=== PATIENT | male | born 1940 | race Caucasian/White ===

== ENCOUNTER 2017-01-19 14:32 | Emergency (ER) | payer MEDICARE ==
[~2017-01-19] VITALS: Ht 185.4 cm; Wt 115.7 kg
--- NOTE | ~2017-01-19 | EKG ---
[facility] [place], [place] ELECTROCARDIOGRAM REPORT NAME: GODWIN GOEMZ UNIT #: [id number] ROOM: DOCTOR: DAWN WILSON MD BIRTHDATE: [birth year] DOS: 01/19/2017 TIME: 1454 hours. Normal sinus rhythm at 98 beats per minute with a single PVC. Mild left axis deviation. Mild prolonged QRS interval. Poor R-wave progression is present with low voltage in precordial leads. An abnormal ECG. No previous tracing is available for comparison. DAWN WILSON MD CM:EKGRPT:ELECTROCARDIOGRAM REPORT 1705 19 DAWN WILSON MD
[~2017-01-19 14:32] MED LIST: COREG3.125 MG PO; LASIX20 MG PO; NAPROSYN500 MG PO; PERCOCET 325 MG1 TA2 PO; PERCOCET 325 MG1 TA6 PO; SIMVASTATIN20 MG PO; Zestril,Prinivi40 MG PO
[2017-01-19 14:54] LABS: HEMATOCRIT 51.7 % (42.0-52.0); HEMOGLOBIN 17.3 g/dl (14.0-18.0); MEAN CELL VOLUME 85.6 fl (80.0-94.0); MEAN CORPUSCULAR HGB 28.6 pg (27.0-31.0); MEAN CORPUSCULAR HGB CONC 33.5 g/dl (33.0-37.0); MEAN PLATELET VOLUME 9.7 fl (9.6-12.3); PLATELET COUNT AUTOMATED 365 10*3/uL (130-400); RED BLOOD COUNT 6.04 10*6/uL (4.50-5.90); RED CELL DISTRI WIDTH 14.1 % (0-14.5); WHITE BLOOD COUNT 23.6 10*3/uL (4.8-10.8)
[2017-01-19 15:11] LABS: ALBUMIN 4.4 gm/dl (3.1-4.5); ALKALINE PHOSPHATASE 87 U/L (45-117); BUN 22 mg/dl (7-24); CHLORIDE 101 mmol/L (98-107); CREATININE 1.32 mg/dL (0.70-1.30); LIPASE 188 U/L (73-393); POTASSIUM 4.1 mmol/L (3.5-5.1); SGOT/AST 31 IU/L (3-35); SGPT/ALT 31 U/L (12-78); SODIUM 135 mmol/L (136-145); TOTAL PROTEIN 8.8 gm/dL (6.4-8.2)
[2017-01-19 15:15] LABS: PLATELET SUFFICIENCY NORMAL (NORMAL); TOTAL CELLS COUNTED 100 #CELLS
[2017-01-19 15:16] LABS: TROPONIN I < 0.015 ng/ml (<0.045)
[2017-01-19 15:51] LABS: ABG BASE EXCESS -1.3 mmol/L (-2.0-2.0); ABG HCO3 22.2 mmol/l (22-26); ABG O2 SATURATION 96.7 % (95-97); ARTERIAL BLOOD GAS PCO2 34.3 mmHg (35-45); ARTERIAL BLOOD GAS PH 7.422 (7.35-7.45); ARTERIAL BLOOD GAS PO2 80.4 mmHg (80-90)
== END 2017-01-19 18:44 | disposition short-term general hospital (02) ==
LOC: ED 14:32
PROVIDERS: Emergency Medicine; Nurse Practitioner Family
DX: K56.609 Unspecified intestinal obstruction, unspecified as to partial versus complete obstruction (principal); Z79.899 Other long term (current) drug therapy

== ENCOUNTER → 2023-03-08 | Outpatient (CLI) | payer OTHER, MEDICARE ==
[~2023-03-08] MED LIST changes: +ASPIRIN ADULT L81 M2 PO; +CENTRUM SILVER1 EACH PO
[2023-03-08 16:34] LABS: BASO # 0.1 10*3/uL (0.0-0.1); BASO % 0.7 % (0.0-1.0); EOS # 0.2 10*3/uL (0.0-0.4); EOS % 3.1 % (1.0-4.0); HEMATOCRIT 40.7 % (42.0-52.0); LYMPH # 1.4 10*3/uL (1.3-4.4); LYMPH % 18.4 % (27.0-41.0); MEAN CELL VOLUME 85.1 fl (80.0-94.0); MEAN CORPUSCULAR HGB 26.8 pg (27.0-31.0); MEAN CORPUSCULAR HGB CONC 31.4 g/dl (33.0-37.0); MEAN PLATELET VOLUME 9.5 fl (9.6-12.3); MONO # 0.7 10*3/uL (0.1-1.0); MONO % 8.7 % (3.0-9.0); NEUT # 5.2 10*3/uL (2.3-7.9); NEUT % 68.8 % (47.0-73.0); PLATELET COUNT AUTOMATED 302 10*3/uL (130-400); RED BLOOD COUNT 4.78 10*6/uL (4.50-5.90); RED CELL DISTRI WIDTH 13.6 % (0-14.5); WHITE BLOOD COUNT 7.5 10*3/uL (4.8-10.8)
[2023-03-08 16:58] LABS: BUN 21 mg/dl (9-23); CHLORIDE 107 mmol/L (98-107); POTASSIUM 4.2 mmol/L (3.4-5.1)
== END | disposition home or self-care (01) ==
LOC: LAB 16:14
PROVIDERS: ATTEND Thoracic Surgery (Cardiothoracic Vascular Surgery)
DX: I25.10 Atherosclerotic heart disease of native coronary artery without angina pectoris (principal)

== ENCOUNTER → 2023-05-13 | Outpatient (CLI) | payer MEDICARE | END | disposition home or self-care (01) | LOC: RESCLI 01:48 | PROVIDERS: ATTEND Internal Medicine | DX: I48.91 Unspecified atrial fibrillation (principal); I25.10 Atherosclerotic heart disease of native coronary artery without angina pectoris; R33.9 Retention of urine, unspecified; G47.00 Insomnia, unspecified; E78.5 Hyperlipidemia, unspecified; Z98.890 Other specified postprocedural states; Z79.899 Other long term (current) drug therapy; Z82.49 Family history of ischemic heart disease and other diseases of the circulatory system ==

== ENCOUNTER 2024-07-12 09:35 | Emergency (ER) | payer MEDICARE ==
[~2024-07-12] VITALS: Ht 180.3 cm; Wt 109.8 kg
[2024-07-12] MEDS ORDERED: AZITHROMYCIN 250 MG TAB PO ONE (10:25)
[2024-07-12] MEDS ORDERED: AVPAK AZITHROM250 M1 PO (10:26)
== END 2024-07-12 10:36 | disposition home or self-care (01) ==
LOC: ED 09:35
DX: U07.1 COVID-19 (principal); J40 Bronchitis, not specified as acute or chronic; Z88.8 Allergy status to other drugs, medicaments and biological substances; Z91.040 Latex allergy status; Z79.82 Long term (current) use of aspirin; Z79.899 Other long term (current) drug therapy; Z90.49 Acquired absence of other specified parts of digestive tract; Z98.890 Other specified postprocedural states